=== PATIENT | female | born 1965 ===

== ENCOUNTER 2021-07-04 09:15 | Inpatient (IN) | payer OTHER ==
[~2021-07-04] VITALS: Ht 167.6 cm; Wt 83.9 kg
[2021-07-04] MEDS ORDERED: LEVOTHYROXINE25 MCG PO (11:23)
[2021-07-04] MEDS ORDERED: CRESTOR20 MG PO (11:24)
[2021-07-04] MEDS ORDERED: FENOFIB PO (11:24)
[2021-07-04] MEDS ORDERED: CLONAZEPAM0.5 MG PO (11:25)
[2021-07-04] MEDS ORDERED: CYMBALTA60 MG PO (11:25)
[2021-07-08] MEDS ORDERED: FENOFIBRATE160 MG (09:01)
== END 2021-07-08 10:56 | disposition home or self-care (01) | DRG 735 ==
LOC: OB/GYN 07-07 05:38 → O/R 07-07 05:38 → OB/GYN 07-07 07:00
PROVIDERS: ADMIT Obstetrics & Gynecology Gynecologic Oncology; ATTEND Obstetrics & Gynecology Gynecologic Oncology
PROC: 07TC4ZZ Resection of Pelvis Lymphatic, Percutaneous Endoscopic Approach (ICD-10-PCS; 2021-07-07)
PROC: 0UT94ZZ Resection of Uterus, Percutaneous Endoscopic Approach (ICD-10-PCS; 2021-07-07)
PROC: 0UT74ZZ Resection of Bilateral Fallopian Tubes, Percutaneous Endoscopic Approach (ICD-10-PCS; 2021-07-07)
PROC: 0UT24ZZ Resection of Bilateral Ovaries, Percutaneous Endoscopic Approach (ICD-10-PCS; 2021-07-07)
PROC: 0DBW4ZZ Excision of Peritoneum, Percutaneous Endoscopic Approach (ICD-10-PCS; 2021-07-07)
PROC: 0DTU4ZZ Resection of Omentum, Percutaneous Endoscopic Approach (ICD-10-PCS; 2021-07-07)
PROC: 3E1M48Z Irrigation of Peritoneal Cavity using Irrigating Substance, Percutaneous Endoscopic Approach (ICD-10-PCS; 2021-07-07)
PROC: 07TD4ZZ Resection of Aortic Lymphatic, Percutaneous Endoscopic Approach (ICD-10-PCS; principal; 2021-07-07 07:00)
DX: N72 Inflammatory disease of cervix uteri (principal); Z20.822 Contact with and (suspected) exposure to COVID-19